=== PATIENT | female | born 1985 | race Caucasian/White ===

== ENCOUNTER 2023-06-12 00:06 | Inpatient (IN) | payer OTHER, SELFPAY ==
[2023-06-12 00:55] VITALS: BMI 30.4
[2023-06-12] MEDS: LR 1000 IV ×3 (01:00→07:30)
[2023-06-12 01:15] VITALS: BP 129/76
[2023-06-12 01:19] LABS: % Basophils 0.4 % (0-2); % Eosinophils 0.9 % (0-6); % Immature Granulocytes 0.5 % (0-0.5); % Lymphocytes 25.8 % (20.5-51.1); % Monocytes 7.5 % (1.7-9.3); % Neutrophils 64.9 % (42.2-75.2); Absolute Eosinophils 0.1 10^3/uL (0-0.7); Absolute Immature Granulocytes 0.1 10^3/uL (0-0.05); Absolute Lymphocytes 2.8 10^3/uL (1.2-3.4); Absolute Monocytes 0.8 10^3/uL (0.1-0.6); Absolute Neutrophils 7.2 10^3/uL (1.4-6.5); Hematocrit 31.8 % (37.0-47.0); Hemoglobin 11.1 g/dL (12.0-16.0); Mean Corp Hgb Conc. 34.9 g/dL (33.0-37.0); Mean Corpuscular Hgb 30.1 pg (27.0-31.0); Mean Corpuscular Volume 86.2 fL (81.0-99.0); Mean Platelet Volume 10.5 fL (7.4-10.4); Nucleated Red Blood Cells % 0 %; Platelet Count 280 10^3/uL (130-400); Red Blood Cell Count 3.69 10^6/uL (4.20-5.40); Red Cell Dist. Width 13.3 % (11.5-14.5)
[2023-06-12] MEDS: PENICILLIN 110 UNITS IV (01:55)
[2023-06-12] MEDS: SUBLIMAZE 100 MCG EPIDURAL (03:16)
[2023-06-12] MEDS: FENTANYL/BUPIVACAINE 100 EPIDURAL ×2 (03:16→10:36)
[2023-06-12] MEDS: PENICILLIN 55 UNITS IV ×3 (06:15→14:02)
[2023-06-12] MEDS: PEPCID 20 MG PO (10:46)
[2023-06-12] MEDS: FEOSOL 325 MG PO (17:30)
[2023-06-12] MEDS: MOTRIN 600 MG PO ×2 (17:30→23:33)
[2023-06-12] MEDS: TYLENOL 650 MG PO (23:33)
[2023-06-13 05:57] LABS: Hematocrit 27.5 % (37.0-47.0); Hemoglobin 9.4 g/dL (12.0-16.0)
[2023-06-13] MEDS: PRENATAL PLUS 1 TABLET PO (08:02)
[2023-06-13] MEDS: FEOSOL 325 MG PO ×2 (08:02→21:08)
[2023-06-13] MEDS: SENOKOT-S 1 TABLET PO (08:02)
[2023-06-13] MEDS: MOTRIN 600 MG PO ×2 (10:03→21:39)
[2023-06-13] MEDS: TYLENOL 650 MG PO ×2 (10:03→21:39)
[2023-06-14] MEDS: PRENATAL PLUS 1 TABLET PO (08:47)
[2023-06-14] MEDS: SENOKOT-S 1 TABLET PO (08:47)
[2023-06-14] MEDS: FEOSOL 325 MG PO (08:47)
[2023-06-14] MEDS: MOTRIN 600 MG PO (08:47)
[2023-06-15 14:19] LABS: Syphilis/T. pallidum Ab Reflex Negative (Negative)
== END 2023-06-14 11:57 | disposition home or self-care (01) | DRG 807 ==
LOC: LDRP 00:06
PROVIDERS: Obstetrics & Gynecology; ADMITTING PHYSICIAN Obstetrics & Gynecology; FAMILY PHYSICIAN Family Medicine
PROC: 0KQM0ZZ Repair Perineum Muscle, Open Approach (ICD-10-PCS; 2023-06-12)
PROC: 10E0XZZ Delivery of Products of Conception, External Approach (ICD-10-PCS; 2023-06-12)
DX: O42.02 Full-term premature rupture of membranes, onset of labor within 24 hours of rupture (principal); Z37.0 Single live birth; Z3A.37 37 weeks gestation of pregnancy; O70.1 Second degree perineal laceration during delivery; Z87.440 Personal history of urinary (tract) infections; E06.3 Autoimmune thyroiditis; O99.284 Endocrine, nutritional and metabolic diseases complicating childbirth; O99.344 Other mental disorders complicating childbirth; F41.9 Anxiety disorder, unspecified; O90.81 Anemia of the puerperium; D64.9 Anemia, unspecified
CPT/HCPCS: 85014; 85018; 85025; 86780; 86850; 86900; 86901